=== PATIENT | female | born 1945 | race Two or more races ===

== ENCOUNTER 2022-12-13 07:01 | Emergency (ER) | payer OTHER ==
[~2022-12-13] VITALS: Ht 152.4 cm; Wt 87.6 kg
[2022-12-13 07:20] VITALS: BP 151/77
[2022-12-13] MEDS ORDERED: ACETAMINOPHEN 500 MG TAB PO ONE (07:45)
[2022-12-13 08:32] LABS: Urine Bacteria FEW /hpf (None Seen); Urine Blood Negative /uL (Negative); Urine Mucus FEW (None Seen); Urine Specific Gravity 1.014 (1.001-1.035); Urine WBC 13 /hpf (0 - 5)
[2022-12-13] MEDS ORDERED: ACET500T58 PO (08:55)
[2022-12-13] MEDS ORDERED: NITR-87 PO (08:55)
== END 2022-12-13 09:14 | disposition home or self-care (01) ==
LOC: ER 07:01
DX: N39.0 Urinary tract infection, site not specified (principal); M54.59 Other low back pain; Z88.8 Allergy status to other drugs, medicaments and biological substances
CPT/HCPCS: 81001

== ENCOUNTER 2023-04-19 06:59 | Emergency (ER) | payer OTHER ==
[~2023-04-19] VITALS: Ht 152.4 cm; Wt 88.1 kg
[~2023-04-19 06:59] MED LIST: ACET500T58 PO; BACDST PO; NITR-87 PO
[2023-04-19 07:48] VITALS: BP 124/61; PULSE 78; RESP 16; TEMP 97.8; O2SAT 95
[2023-04-19 07:56] LABS: Urine Bacteria FEW /hpf (None Seen); Urine Blood Negative /uL (Negative); Urine Clarity HAZY (Clear); Urine Color Yellow (Yellow); Urine Protein, UAD Negative (Negative); Urine Specific Gravity 1.018 (1.001-1.035); Urine Urobilinogen Normal (Negative); Urine WBC 2 /hpf (0 - 5)
[2023-04-19] MEDS ORDERED: ACETAMINOPHEN 500 MG TAB PO ONE (08:00)
[2023-04-19] MEDS ORDERED: METH-1181 PO (08:47)
[2023-04-19] MEDS ORDERED: ACET-1080 PO (08:47)
== END 2023-04-19 09:01 | disposition home or self-care (01) ==
LOC: ER 06:59
DX: M51.36 Other intervertebral disc degeneration, lumbar region (principal); M43.16 Spondylolisthesis, lumbar region; R30.9 Painful micturition, unspecified; I10 Essential (primary) hypertension; Z88.8 Allergy status to other drugs, medicaments and biological substances; Z79.1 Long term (current) use of non-steroidal anti-inflammatories (NSAID); Z79.899 Other long term (current) drug therapy
CPT/HCPCS: 72100; 81001

== ENCOUNTER 2023-06-12 10:46 | Inpatient (IN) | payer OTHER ==
[~2023-06-12] VITALS: Ht 153.2 cm; Wt 71.0 kg
[~2023-06-12 10:46] MED LIST changes: +ACET-1080 PO; +METH-1181 PO
[2023-06-12] MEDS ORDERED: SODIUM CHLORIDE 0.9% 1,000 ML IV ONE (11:30)
[2023-06-12] MEDS ORDERED: PANTOPRAZOLE 40 MG/10 ML VIAL INJ IV ONE (11:30)
[2023-06-12 12:22] LABS: Hematocrit 24.2 % (36.0-46.0); Hemoglobin 7.8 g/dL (12.2-16.2); Mean Corpuscular Hemoglobin 29.9 pg (28.0-32.0); Mean Corpuscular Hgb Conc. 32.5 g/dL (32.0-36.0); Red Blood Cells 2.63 10^6/uL (4.0-5.20); Red Cell Distribution Width 14.3 % (11.8-14.3); White Blood Cell 16.3 10^3/uL (4.4-10.8)
[2023-06-12 12:23] LABS: Band Neutrophils % (manual) 0; Basophils % (manual) 0 (0.0-2.0); Blast Cells 0; Eosinophils % (manual) 0 (0-7); Metamyelocytes % 0; Myelocytes % 0; Promyelocytes % 0; Reactive Lymphocytes 0
[2023-06-12 12:29] LABS: Partial Thromboplastin Time 21.4 SEC (24.5-34.5); Prothrombin Time 10.5 sec (9.3-11.8)
[2023-06-12 12:36] LABS: Alanine Aminotransferase 15 U/L (7-40); Albumin 3.9 g/dL (3.2-4.8); Alkaline Phosphatase 67 U/L (46-116); Anion Gap 9 (5-15); Aspartate Aminotransferase 19 U/L (13-40); BUN/Creatinine Ratio 28.8 (10.0-20.0); Bilirubin, Total 0.8 mg/dL (0.2-1.0); Blood Urea Nitrogen 21 mg/dL (9-23); Calcium 8.8 mg/dL (8.7-10.4); Carbon Dioxide 20 mmol/L (20-30); Chloride 109 mmol/L (98-107); Glucose 125 mg/dL (74-106); Lipase 42 U/L (12-53); Sodium 138 mmol/L (136-145); Total Protein 6.1 g/dL (5.7-8.2)
[2023-06-12 13:20] LABS: Lactic Acid w/Reflex 2.6 mmol/L (0.4-2.0)
[2023-06-12 13:42] LABS: Lymphocytes % (manual) 10 (10.0-50.0); Monocytes % (manual) 4 (0-12); Platelet Estimate Adequate
[2023-06-12] MEDS: SODIUM CHLORIDE 0.9% 1,000 ML IV SCH ×2 (14:00→22:29)
[2023-06-12] MEDS ORDERED: HYDROcodone-ACET 5/325MG TAB PO PRN (14:00)
[2023-06-12] MEDS ORDERED: DOCUSATE SOD 100 MG CAP PO PRN (14:00)
[2023-06-12] MEDS ORDERED: ONDANSETRON HCL 4 MG/2 ML VIAL IV PRN (14:00)
[2023-06-12] MEDS ORDERED: ACETAMINOPHEN 325 MG TAB PO PRN (14:00)
[2023-06-12] MEDS ORDERED: LISI-283 PO (14:02)
[2023-06-12] MEDS ORDERED: cefTRIAXone 1GM/50ML D5W 50 ML IV ONE (14:15)
[2023-06-12 14:21] LABS: Urine Amorphous Crystal FEW /hpf (None Seen); Urine Bacteria NONE SEEN /hpf (None Seen); Urine Blood Negative /uL (Negative); Urine Clarity HAZY (Clear); Urine Color Yellow (Yellow); Urine Mucus FEW (None Seen); Urine Protein, UAD TRACE (Negative); Urine Specific Gravity 1.024 (1.001-1.035); Urine Urobilinogen Normal (Negative); Urine WBC 4 /hpf (0 - 5); Urine pH 5.5 (5.0-8.0)
[2023-06-12 18:51] LABS: Hematocrit 24.1 % (36.0-46.0)
[2023-06-12] MEDS: PANTOPRAZOLE 40 MG/10 ML VIAL INJ IV SCH (22:27)
[2023-06-12] MEDS: metroNIDAZOLE 500MG/100ML 100 ML IV SCH (22:27)
[2023-06-13] VITALS (12 sets, daily range): BP systolic 93–137; BP diastolic 40–71; PULSE 82–93; RESP 16–22; TEMP 97.4–98.3; O2SAT 95–99
[2023-06-13 06:09] LABS: Basophils # (auto) 0.1 10 ^3/uL (0-0.2); Basophils % (auto) 0.5 % (0.0-2.0); Eosinophils # (auto) 0.1 10 ^3/uL (0-0.8); Mean Corpuscular Hemoglobin 30.7 pg (28.0-32.0); Mean Corpuscular Hgb Conc. 33.4 g/dL (32.0-36.0); Red Cell Distribution Width 14.8 % (11.8-14.3); White Blood Cell 10.5 10^3/uL (4.4-10.8)
[2023-06-13] MEDS: metroNIDAZOLE 500MG/100ML 100 ML IV SCH ×3 (06:09→21:56)
[2023-06-13 06:11] LABS: Hematocrit 19.9 % (36.0-46.0); Lymphocytes # (auto) 2.1 10 ^3/uL (0.4-5.4); Lymphocytes % (auto) 19.9 % (10.0-50.0); Mean Corpuscular Volume 91.7 fL (80.0-100.0); Monocytes # (auto) 0.7 10 ^3/uL (0-1.3); Monocytes % (auto) 6.9 % (0.0-12.0); Neutrophils # (auto) 7.5 10 ^3/uL (1.6-8.6); Neutrophils % (auto) 71.7 % (37.0-80.0); Nucleated Red Blood Cells % 0.1 %; Red Blood Cells 2.17 10^6/uL (4.0-5.20)
[2023-06-13 06:19] LABS: Hemoglobin 6.7 g/dL (12.2-16.2)
[2023-06-13 06:31] LABS: Alanine Aminotransferase 13 U/L (7-40); Albumin 3.4 g/dL (3.2-4.8); Alkaline Phosphatase 58 U/L (46-116); Anion Gap 10 (5-15); Aspartate Aminotransferase 18 U/L (13-40); BUN/Creatinine Ratio 21.7 (10.0-20.0); Blood Urea Nitrogen 15 mg/dL (9-23); Calcium 8.5 mg/dL (8.5-10.1); Carbon Dioxide 21 mmol/L (20-30); Chloride 112 mmol/L (98-107); Cholesterol 114 mg/dL (< 200); Glucose 106 mg/dL (74-106); HDL Cholesterol 35 mg/dL (40-59); LDL Cholesterol 60 mg/dL (< 100); Potassium 3.5 mmol/L (3.5-5.1); Sodium 143 mmol/L (136-145); Triglycerides 187 mg/dL (< 150)
[2023-06-13 06:32] LABS: % Iron Saturation 22.8 % (15-50); Bilirubin, Total 0.6 mg/dL (0.2-1.0); Total Protein 5.4 g/dL (5.7-8.2)
[2023-06-13 06:40] LABS: Ferritin 75.9 ng/mL (10-291); Folate (Folic Acid) > 24.00 ng/mL (>5.38)
[2023-06-13] MEDS: SODIUM CHLORIDE 0.9% 1,000 ML IV SCH ×3 (06:49→23:20)
[2023-06-13] MEDS: cefTRIAXone 1GM/50ML D5W 50 ML IV SCH (09:30)
[2023-06-13] MEDS: PANTOPRAZOLE 40 MG/10 ML VIAL INJ IV SCH (09:30)
[2023-06-13 14:59] LABS: Folate (Folic Acid) > 24.00 ng/mL (>5.38)
[2023-06-13] MEDS: PANTOPRAZOLE 40mg/50ML NS AE 50 ML IV SCH ×3 (16:30→22:00)
[2023-06-13 21:41] LABS: Basophils # (auto) 0 10 ^3/uL (0-0.2); Basophils % (auto) 0.3 % (0.0-2.0); Eosinophils # (auto) 0.2 10 ^3/uL (0-0.8); Eosinophils % (auto) 1.5 % (0.0-7.0); Hematocrit 25.9 % (36.0-46.0); Hemoglobin 8.5 g/dL (12.2-16.2); Lymphocytes # (auto) 2.3 10 ^3/uL (0.4-5.4); Lymphocytes % (auto) 21.6 % (10.0-50.0); Mean Corpuscular Hemoglobin 30.8 pg (28.0-32.0); Mean Corpuscular Hgb Conc. 32.8 g/dL (32.0-36.0); Mean Corpuscular Volume 94.1 fL (80.0-100.0); Monocytes # (auto) 0.7 10 ^3/uL (0-1.3); Monocytes % (auto) 6.4 % (0.0-12.0); Neutrophils # (auto) 7.6 10 ^3/uL (1.6-8.6); Neutrophils % (auto) 70.2 % (37.0-80.0); Nucleated Red Blood Cells % 0.2 %; Red Blood Cells 2.76 10^6/uL (4.0-5.20); Red Cell Distribution Width 14.6 % (11.8-14.3); White Blood Cell 10.8 10^3/uL (4.4-10.8)
[2023-06-14] VITALS (8 sets, daily range): BP systolic 105–132; BP diastolic 45–58; PULSE 60–100; RESP 18–24; TEMP 97.7–98.4; O2SAT 94–100
[2023-06-14] MEDS: PANTOPRAZOLE 40mg/50ML NS AE 50 ML IV SCH ×4 (02:15→17:40)
[2023-06-14] MEDS: metroNIDAZOLE 500MG/100ML 100 ML IV SCH ×3 (05:26→21:39)
[2023-06-14 05:47] LABS: Hematocrit 26.5 % (36.0-46.0); Hemoglobin 8.7 g/dL (12.2-16.2); Mean Corpuscular Hemoglobin 31.3 pg (28.0-32.0); Mean Corpuscular Volume 94.7 fL (80.0-100.0); Red Cell Distribution Width 15.1 % (11.8-14.3); White Blood Cell 10.7 10^3/uL (4.4-10.8)
[2023-06-14 06:02] LABS: Alanine Aminotransferase 11 U/L (7-40); Albumin 3.5 g/dL (3.2-4.8); Alkaline Phosphatase 59 U/L (46-116); Anion Gap 9 (5-15); Aspartate Aminotransferase 18 U/L (13-40); BUN/Creatinine Ratio 14.8 (10.0-20.0); Blood Urea Nitrogen 9 mg/dL (9-23); Calcium 7.9 mg/dL (8.7-10.4); Carbon Dioxide 18 mmol/L (20-30); Chloride 114 mmol/L (98-107); Glucose 89 mg/dL (74-106); Magnesium 2.1 mg/dL (1.6-2.6); Potassium 3.5 mmol/L (3.5-5.1); Sodium 141 mmol/L (136-145)
[2023-06-14 06:03] LABS: Total Protein 5.5 g/dL (5.7-8.2)
[2023-06-14 06:31] LABS: Band Neutrophils % (manual) 0; Basophils % (manual) 0 (0.0-2.0); Blast Cells 0; Metamyelocytes % 0; Myelocytes % 0; Promyelocytes % 0; Reactive Lymphocytes 0
[2023-06-14 09:12] LABS: Eosinophils % (manual) 1 (0-7); Lymphocytes % (manual) 19 (10.0-50.0); Monocytes % (manual) 2 (0-12); Platelet Estimate Adequate
[2023-06-14] MEDS: cefTRIAXone 1GM/50ML D5W 50 ML IV SCH (09:24)
[2023-06-14] MEDS ORDERED: GOLYTELY 4L KIT PO ONE (16:15)
[2023-06-14] MEDS ORDERED: MAGNESIUM CITRATE SOLUTION 300 ML BTL PO ONE ×2 (16:15→22:00)
[2023-06-14] MEDS ORDERED: GOLYTELY 4L KIT ONE ×2 (17:06→17:17)
[2023-06-14] MEDS: PANTOPRAZOLE 40 MG/10 ML VIAL INJ IV SCH (23:25)
[2023-06-15] VITALS (7 sets, daily range): BP systolic 117–138; BP diastolic 55–63; PULSE 83–101; RESP 18–20; TEMP 97.7–98.2; O2SAT 94–100
[2023-06-15] MEDS: metroNIDAZOLE 500MG/100ML 100 ML IV SCH ×3 (05:18→15:30)
[2023-06-15 05:55] LABS: Hematocrit 26.6 % (36.0-46.0); Hemoglobin 8.9 g/dL (12.2-16.2); Mean Corpuscular Hemoglobin 31.1 pg (28.0-32.0); Mean Corpuscular Hgb Conc. 33.6 g/dL (32.0-36.0); Mean Corpuscular Volume 92.5 fL (80.0-100.0); Red Blood Cells 2.88 10^6/uL (4.0-5.20); Red Cell Distribution Width 15.1 % (11.8-14.3)
[2023-06-15] MEDS ORDERED: GOLYTELY 4L KIT PO ONE (06:00)
[2023-06-15 06:10] LABS: Anion Gap 12 (5-15); Carbon Dioxide 17 mmol/L (20-30); Chloride 112 mmol/L (98-107); Potassium 3.4 mmol/L (3.5-5.1); Sodium 141 mmol/L (136-145)
[2023-06-15 06:16] LABS: BUN/Creatinine Ratio 12.5 (10.0-20.0); Blood Urea Nitrogen 8 mg/dL (9-23); Glucose 92 mg/dL (74-106); Magnesium 2.4 mg/dL (1.6-2.6)
[2023-06-15 06:21] LABS: Basophils % (manual) 0 (0.0-2.0); Blast Cells 0; Eosinophils % (manual) 0 (0-7); Myelocytes % 0; Promyelocytes % 0; Reactive Lymphocytes 0
[2023-06-15] MEDS ORDERED: MAGNESIUM CITRATE SOLUTION 300 ML BTL PO ONE (07:00)
[2023-06-15 07:22] LABS: Band Neutrophils % (manual) 3; Lymphocytes % (manual) 14 (10.0-50.0); Metamyelocytes % 2; Monocytes % (manual) 6 (0-12); Platelet Estimate Adequate
[2023-06-15] MEDS ORDERED: POTASSIUM CHL 20 Meq TABLET PO ONE (08:30)
[2023-06-15] MEDS: cefTRIAXone 1GM/50ML D5W 50 ML IV SCH (09:00)
[2023-06-15] MEDS: PANTOPRAZOLE 40 MG/10 ML VIAL INJ IV SCH (09:40)
[2023-06-15] MEDS ORDERED: CYANOCOBALAMIN (B-12) 1000 MCG/1 ML VIAL IM ONE (11:30)
[2023-06-15] MEDS ORDERED: CYAN100056 PO (11:32)
[2023-06-15] MEDS ORDERED: PANT40TA2 PO (11:32)
[2023-06-15] MEDS ORDERED: SODIUM CHLORIDE LOCK 10 ML ONE (14:48)
[2023-06-15] MEDS: diphenhdrAMINE HCL 50 MG/1 ML VL ONE ×2 (15:34→15:37)
[2023-06-15] MEDS: fentaNYL CITRATE 100 MCG/2 ML VL ONE ×2 (15:34→15:38)
[2023-06-15] MEDS: MIDAZOLAM HCL 5 MG/ML-1ML VIAL ONE ×2 (15:34→15:37)
== END 2023-06-15 18:40 | disposition home or self-care (01) | DRG 378 ==
LOC: ER 10:46 → OVERFLOW 14:00 → CENTRAL 06-13 08:26
PROVIDERS: ADMIT Internal Medicine; ATTEND Internal Medicine
PROC: 30233N1 Transfusion of Nonautologous Red Blood Cells into Peripheral Vein, Percutaneous Approach (ICD-10-PCS; principal; 2023-06-13)
PROC: 0DB98ZX Excision of Duodenum, Via Natural or Artificial Opening Endoscopic, Diagnostic (ICD-10-PCS; 2023-06-14)
PROC: 0DB68ZX Excision of Stomach, Via Natural or Artificial Opening Endoscopic, Diagnostic (ICD-10-PCS; 2023-06-14)
PROC: 0DBN8ZX Excision of Sigmoid Colon, Via Natural or Artificial Opening Endoscopic, Diagnostic (ICD-10-PCS; 2023-06-15)
DX: K29.71 Gastritis, unspecified, with bleeding (principal); K57.12 Diverticulitis of small intestine without perforation or abscess without bleeding; D64.9 Anemia, unspecified; E66.9 Obesity, unspecified; D72.829 Elevated white blood cell count, unspecified; M51.36 Other intervertebral disc degeneration, lumbar region; K64.8 Other hemorrhoids; I10 Essential (primary) hypertension; K76.0 Fatty (change of) liver, not elsewhere classified; Z88.1 Allergy status to other antibiotic agents; Z68.30 Body mass index [BMI] 30.0-30.9, adult; Z90.49 Acquired absence of other specified parts of digestive tract
CPT/HCPCS: 36415; 43235; 45380; 71045; 74176; 80048; 80053; 80061; 81001; 82270; 82607; 82728; 82746; 83540; 83550; 83605; 83615; 83690; 83735; 83880; 84436; 84443; 84484; 85007; 85014; 85018; 85025; 85027; 85045; 85610; 85730; 86850; 86900; 86901; 86920; 87040; 93005; C9113; G0378; J2250; J3490